=== PATIENT | male | born 1945 | race Caucasian/White ===

== ENCOUNTER 2016-10-05 13:52 | Outpatient (CLI) | payer MEDICARE ==
[2016-10-05 18:41] LABS: CHOL/HDL RATIO 4.4 (<5.0); CHOLESTEROL 204 mg/dL; HDL CHOLESTEROL 46 mg/dL; LDL/HDL RATIO 3.1 (<3.6); TRIGLYCERIDES 82 mg/dL; VLDL CHOLESTEROL 16 mg/dL
== END 2016-10-05 13:53 | disposition home or self-care (01) ==
LOC: LAB.F 13:52
PROVIDERS: ATTEND Internal Medicine
DX: E78.2 Mixed hyperlipidemia (principal)
CPT/HCPCS: 36415; 80061

== ENCOUNTER 2017-10-15 10:21 | Outpatient (CLI) | payer MEDICARE ==
[2017-10-15 19:20] LABS: CHOL/HDL RATIO 5.8 (<5.0); CHOLESTEROL 237 mg/dL; HDL CHOLESTEROL 41 mg/dL; LDL CHOLESTEROL,CALCULATED 171 mg/dL; LDL/HDL RATIO 4.2 (<3.6); VLDL CHOLESTEROL 25 mg/dL
[2017-10-16 13:01] LABS: HEPATITIS C ANTIBODY NON-REACTIVE (NON-REACTIVE)
== END 2017-10-15 10:22 | disposition home or self-care (01) ==
LOC: LAB.F 10:21
PROVIDERS: ATTEND Internal Medicine
DX: Z00.00 Encounter for general adult medical examination without abnormal findings (principal); I48.91 Unspecified atrial fibrillation; C44.91 Basal cell carcinoma of skin, unspecified; L03.90 Cellulitis, unspecified; K21.9 Gastro-esophageal reflux disease without esophagitis; K40.90 Unilateral inguinal hernia, without obstruction or gangrene, not specified as recurrent; E78.2 Mixed hyperlipidemia; Z12.11 Encounter for screening for malignant neoplasm of colon
CPT/HCPCS: 36415; 80061; 83721; 86803

== ENCOUNTER 2018-02-24 09:24 | Outpatient (CLI) | payer MEDICARE ==
[2018-02-24 19:07] LABS: CHOL/HDL RATIO 3.3 (<5.0); CHOLESTEROL 143 mg/dL; HDL CHOLESTEROL 43 mg/dL; LDL CHOLESTEROL,CALCULATED 80 mg/dL; LDL/HDL RATIO 1.9 (<3.6); VLDL CHOLESTEROL 20 mg/dL
== END 2018-02-24 09:25 | disposition home or self-care (01) ==
LOC: LAB.F 09:24
PROVIDERS: ATTEND Internal Medicine
DX: I48.91 Unspecified atrial fibrillation (principal); C44.91 Basal cell carcinoma of skin, unspecified; K21.9 Gastro-esophageal reflux disease without esophagitis; E78.2 Mixed hyperlipidemia
CPT/HCPCS: 36415; 80061; 83721

== ENCOUNTER 2018-11-17 10:39 | Outpatient (CLI) | payer MEDICARE ==
[2018-11-17 17:25] LABS: BASOPHILS % (AUTO) 0.6 %; EOSINOPHILS # (AUTO) 0.2 10^3/uL (0.0-0.7); EOSINOPHILS % (AUTO) 3.9 %; HGB - HEMOGLOBIN 14.9 g/dL (14.0-18.0); LYMPHOCYTES # (AUTO) 2.3 10^3/uL (1.5-3.5); LYMPHOCYTES % (AUTO) 36.2 %; MEAN CORPUSCULAR HGB CONC 32.5 g/dL (32.0-36.0); MEAN CORPUSCULAR VOLUME 95.4 fL (80.0-94.0); MEAN PLATELET VOLUME 10.6 fL (7.4-11.4); MONOCYTES # (AUTO) 0.5 10^3/uL (0.0-1.0); MONOCYTES % (AUTO) 8.7 %; NEUTROPHILS # (AUTO) 3.1 10^3/uL (1.5-6.6); NEUTROPHILS % (AUTO) 50.4 %; PLT - PLATELET COUNT 239 10^3/uL (130-450); RED BLOOD COUNT 4.81 10^6/uL (4.70-6.10); RED CELL DISTRIBUTION WIDTH 13.1 % (12.0-15.0); WHITE BLOOD COUNT 6.2 x10^3/uL (4.8-10.8)
[2018-11-17 17:48] LABS: CHOL/HDL RATIO 3.2 (<5.0); CHOLESTEROL 145 mg/dL; HDL CHOLESTEROL 45 mg/dL; LDL CHOLESTEROL,CALCULATED 80 mg/dL; LDL/HDL RATIO 1.8 (<3.6); VLDL CHOLESTEROL 20 mg/dL
== END 2018-11-17 10:40 | disposition home or self-care (01) ==
LOC: LAB.S 10:39
PROVIDERS: ATTEND Internal Medicine
DX: I48.91 Unspecified atrial fibrillation (principal); C44.91 Basal cell carcinoma of skin, unspecified; K21.9 Gastro-esophageal reflux disease without esophagitis; N52.9 Male erectile dysfunction, unspecified; E78.2 Mixed hyperlipidemia
CPT/HCPCS: 36415; 80061; 83721; 85025

== ENCOUNTER 2019-01-21 09:02 | Outpatient (CLI) | payer MEDICARE ==
--- NOTE | 2019-01-22 14:19 | MRI Report ---
Reason: PAIN RADIATING TO LT SHOULDER Procedure Date: 01/21/2019 Accession Number: [id number] / [id number] Procedure: MRI - Shoulder LT W/O CPT Code: Final Report FULL RESULT: EXAM: LEFT SHOULDER MRI WITHOUT CONTRAST EXAM DATE: 01/21/2019 09:52 AM. CLINICAL HISTORY: PAIN RADIATING TO LT SHOULDER. COMPARISON: SHOULDER 3 VIEW LT 03/24/2014 10:14 PM. TECHNIQUE: Multiplanar, multisequence T1-weighted and fluid-sensitive sequences of the shoulder without contrast. Other: None. FINDINGS: Acromioclavicular Region: The acromion is type II. There is mild cortical hypertrophy and cortical flattening of the undersurface of the acromion consistent with degenerative sequela of chronic subacromial impingement. Mild acromioclavicular osteoarthritis is present. Small osteophytes projecting inferiorly from the distal clavicle slightly indent the bursal surface of the supraspinatus muscle belly. The coracoacromial and coracoclavicular ligaments are intact. Moderate subacromial/subdeltoid bursal fluid with hypertrophy of the bursa membranes consistent with bursitis. Glenohumeral Region: No subluxation. No effusion or loose bodies. The articular cartilage is unremarkable. The glenohumeral ligaments and joint capsule are unremarkable. Bone Marrow: No fracture, marrow edema or bone lesions. Labrum: The labrum is unremarkable on this nonarthrographic study. Musculature/Rotator Cuff: There is focal increased T2 signal in the substance of the distal and anterior supraspinatus at the greater tuberosity insertion involving the anterior approximately 50% of the tendon consistent with a tear, most likely a partial thickness tear with extension to the bursal surface. The tear extends very nearly but probably not completely through the full thickness of the tendon. More posteriorly, there is increased signal in the mid to distal tendon consistent with superimposed tendinosis. No complete retracted tear is present. Mild tendinosis of the mid to distal and anterior infraspinatus with slightly more focal increased signal along the articular surface fibers of the central portion of the tendon at the greater tuberosity insertion consistent with a low-grade partial thickness articular surface tear. No high-grade infraspinatus tear. The teres minor is normal. The subscapularis is normal. No rotator cuff muscle belly atrophy or edema. Biceps Tendon: Mild tendinosis of the intra-articular portion of the long head biceps tendon. No long head biceps tendon tear. Other: The subcutaneous tissues are unremarkable. IMPRESSION: 1. High-grade though likely partial-thickness bursal surface tear at the insertion of the anterior fibers of the supraspinatus on the greater tuberosity. Mild tendinosis in the mid to distal supraspinatus further posteriorly. 2. Mild tendinosis of the mid to distal and anterior infraspinatus with a small superimposed low-grade partial thickness tear along the articular surface of the central portion of the tendon at the greater tuberosity insertion. 3. Mild tendinosis of the intra-articular portion of the long head biceps tendon without tear. 4. Cortical hypertrophic changes and contour flattening along the undersurface of the acromion suggestive of degenerative sequela of chronic subacromial impingement. Moderate subacromial/subdeltoid bursitis may be secondary to this. 5. Mild acromioclavicular osteoarthritis. Small osteophytes projecting inferiorly from the distal clavicle slightly indent the bursal surface of the supraspinatus muscle belly. RADIA
== END 2019-01-21 09:03 | disposition home or self-care (01) ==
LOC: DI 09:02
PROVIDERS: ATTEND Internal Medicine
DX: M75.102 Unspecified rotator cuff tear or rupture of left shoulder, not specified as traumatic (principal); M67.922 Unspecified disorder of synovium and tendon, left upper arm; M75.52 Bursitis of left shoulder; M19.012 Primary osteoarthritis, left shoulder; M89.312 Hypertrophy of bone, left shoulder

== ENCOUNTER 2019-12-14 09:09 | Outpatient (CLI) | payer MEDICARE ==
--- NOTE | 2019-12-14 11:19 | MRI Report ---
PROCEDURE: Shoulder LT W/O INDICATIONS: LT SHOULDER PAIN TECHNIQUE: Noncontrast oblique coronal T2 fast spin echo with fat saturation, oblique sagittal T1 spin echo and T2 fast spin echo with fat saturation, axial T1 spin echo and T2 fast spin echo with fat saturation t hrough the shoulder. COMPARISON: None. FINDINGS: Image quality: Excellent. Rotator cuff: Tendinosis and low-grade articular bursal surface partial-thickness tear involving dist al supraspinatus at its insertion on humeral head extending to the musculotendinous junction is seen. Distal infraspinatus and subscapularis tendinosis is also seen. No full-thickness rotator cuff tendo n rupture.. No significant rotator cuff muscle atrophy on sagittal images. Bones and bursae: No bone marrow contusions or fractures. Moderate acromioclavicular joint osteoarth ritis is seen with downward osteophyte formation depressing the musculotendinous junction of supraspi natus. Mild to moderate glenohumeral joint osteoarthritis is also noted. Small amount of joint fluid and subacromial subdeltoid bursal fluid is seen. Capsule and soft tissues: In the absence of intra-articular contrast, there is suggestion of focal s uperior anterior labral tear at 12 to 1:00 position. There is also suggestion of anterior inferior la bral tear at 5 to 6:00 position. Glenohumeral ligaments appear intact. The long head of the biceps t endinosis is seen. The rotator interval appears normal, without fibrosis. The coracohumeral ligamen t is normal in thickness. IMPRESSION: 1. Tendinosis and low-grade articular and bursal surface partial thickness tear involving distal supr aspinatus extending to musculotendinous junction. Distal infraspinatus and subscapularis tendinosis. 2. Moderate acromioclavicular joint osteoarthritis and glenohumeral joint osteoarthritis. 3. Suggestion of superior anterior labral tear at 12 to 1:00 position an anterior inferior labral tea r at 5 to 6:00 position. 4. Proximal intra-articular portion of long head of biceps tendinosis. Reviewed by: Devendra Abreu MD on 12/14/2019 11:17 AM PDT Approved by: Devendra Abreu MD on 12/14/2019 11:17 AM PDT Station ID: [id number]
== END 2019-12-14 09:10 | disposition home or self-care (01) ==
LOC: DI 09:09
PROVIDERS: ATTEND Orthopaedic Surgery
DX: S46.022A Laceration of muscle(s) and tendon(s) of the rotator cuff of left shoulder, initial encounter (principal); M19.012 Primary osteoarthritis, left shoulder; M75.92 Shoulder lesion, unspecified, left shoulder

== ENCOUNTER 2020-01-18 11:41 | Outpatient (CLI) | payer MEDICARE ==
[2020-01-18 16:58] LABS: BASOPHILS # (AUTO) 0.1 10^3/uL (0.0-0.1); EOSINOPHILS # (AUTO) 0.1 10^3/uL (0.0-0.7); EOSINOPHILS % (AUTO) 2.1 %; HGB - HEMOGLOBIN 14.6 g/dL (14.0-18.0); LYMPHOCYTES # (AUTO) 1.5 10^3/uL (1.5-3.5); LYMPHOCYTES % (AUTO) 24.8 %; MEAN CORPUSCULAR HEMOGLOBIN 31.6 pg (27.0-31.0); MEAN CORPUSCULAR HGB CONC 32.4 g/dL (32.0-36.0); MEAN CORPUSCULAR VOLUME 97.4 fL (80.0-94.0); MEAN PLATELET VOLUME 10.8 fL (7.4-11.4); MONOCYTES # (AUTO) 0.5 10^3/uL (0.0-1.0); MONOCYTES % (AUTO) 8.1 %; NEUTROPHILS # (AUTO) 3.9 10^3/uL (1.5-6.6); NEUTROPHILS % (AUTO) 63.5 %; PLT - PLATELET COUNT 260 10^3/uL (130-450); RED BLOOD COUNT 4.62 10^6/uL (4.70-6.10); RED CELL DISTRIBUTION WIDTH 13.2 % (12.0-15.0); WHITE BLOOD COUNT 6.2 x10^3/uL (4.8-10.8)
[2020-01-18 16:59] LABS: CHOL/HDL RATIO 3.3 (<5.0); CHOLESTEROL 144 mg/dL; HDL CHOLESTEROL 43 mg/dL; LDL CHOLESTEROL,CALCULATED 83 mg/dL; LDL/HDL RATIO 1.9 (<3.6); VLDL CHOLESTEROL 18 mg/dL
[2020-01-18 17:20] LABS: INR 3.7 (0.8-1.2); PT - PROTHROMBIN TIME 37.7 secs (9.9-12.6)
[2020-01-18 17:27] LABS: PARTIAL THROMBOPLASTIN TIME 41.4 secs (24.9-33.3)
[2020-01-19 12:25] LABS: HEPATITIS C ANTIBODY NON-REACTIVE (NON-REACTIVE)
== END 2020-01-18 11:42 | disposition home or self-care (01) ==
LOC: LAB.S 11:41
PROVIDERS: ATTEND Internal Medicine
DX: E78.2 Mixed hyperlipidemia (principal); I48.91 Unspecified atrial fibrillation; K21.9 Gastro-esophageal reflux disease without esophagitis; Z11.59 Encounter for screening for other viral diseases
CPT/HCPCS: 36415; 80061; 83721; 85025; 85610; 85730; 86803

== ENCOUNTER 2020-01-21 08:55 | Outpatient (CLI) | payer MEDICARE | END 2020-01-21 08:56 | disposition home or self-care (01) | LOC: LAB.S 08:55 | PROVIDERS: ATTEND Internal Medicine | DX: I48.91 Unspecified atrial fibrillation (principal) | CPT/HCPCS: 85610 ==

== ENCOUNTER 2020-01-25 10:44 | Outpatient (CLI) | payer MEDICARE | END 2020-01-25 10:45 | disposition home or self-care (01) | LOC: LAB.S 10:44 | PROVIDERS: ATTEND Internal Medicine | DX: I48.91 Unspecified atrial fibrillation (principal) | CPT/HCPCS: 85610 ==

== ENCOUNTER 2020-02-01 09:01 | Outpatient (CLI) | payer MEDICARE | END 2020-02-01 09:02 | disposition home or self-care (01) | LOC: LAB.S 09:01 | PROVIDERS: ATTEND Internal Medicine | DX: I48.91 Unspecified atrial fibrillation (principal) | CPT/HCPCS: 85610 ==

== ENCOUNTER 2020-02-23 21:15 | Outpatient (CLI) | payer MEDICARE ==
--- OUTSIDE RECORDS SUMMARY | 2020-03-02 00:29 | EXTERNAL MEDICAL SUMMARY RPT | Continuity of Care Document ---
:1945 Demographics Phone Unavailable Preferred Language Scottish Marital Status Unknown Scientologist Affiliation Unknown Race Unknown Ethnic Group Unknown Author Organization [place] Address [address] [phone] Phone Care Team Providers Name Role Phone Kalyani Unavailable Unavailable Problems date description facility 2016-10-05 13:52 MIXED HYPERLIPIDEMIA [facility] 2017-10-15 10:21 BASAL CELL CARCINOMA OF SKIN, [facility] UNSPECIFIED 2017-10-15 10:21 MIXED HYPERLIPIDEMIA [facility] 2017-10-15 10:21 UNSPECIFIED ATRIAL FIBRILLATION [facility] 2017-10-15 10:21 GASTRO-ESOPHAGEAL REFLUX DISEASE [facility] WITHOUT ESOPHAGITIS 2017-10-15 10:21 UNIL INGUINAL HERNIA, W/O OBST OR [facility] GANGR, NOT SPCF RECUR 2017-10-15 10:21 CELLULITIS, UNSPECIFIED [facility] 2017-10-15 10:21 ENCNTR FOR GENERAL ADULT MEDICAL [facility] EXAM W/O ABNORMAL FINDINGS 2017-10-15 10:21 ENCOUNTER FOR SCREENING FOR [facility] MALIGNANT NEOPLASM OF COLON 2018-02-24 09:24 BASAL CELL CARCINOMA OF SKIN, [facility] UNSPECIFIED 2018-02-24 09:24 MIXED HYPERLIPIDEMIA [facility] 2018-02-24 09:24 UNSPECIFIED ATRIAL FIBRILLATION [facility] 2018-02-24 09:24 GASTRO-ESOPHAGEAL REFLUX DISEASE [facility] WITHOUT ESOPHAGITIS 2018-11-17 10:39 BASAL CELL CARCINOMA OF SKIN, [facility] UNSPECIFIED 2018-11-17 10:39 MIXED HYPERLIPIDEMIA [facility] 2018-11-17 10:39 UNSPECIFIED ATRIAL FIBRILLATION [facility] 2018-11-17 10:39 GASTRO-ESOPHAGEAL REFLUX DISEASE [facility] WITHOUT ESOPHAGITIS 2018-11-17 10:39 MALE ERECTILE DYSFUNCTION, [facility] UNSPECIFIED 2019-01-21 09:02 PRIMARY OSTEOARTHRITIS, LEFT [facility] SHOULDER 2019-01-21 09:02 UNSPECIFIED DISORDER OF SYNOVIUM [facility] AND TENDON, LEFT UPPER ARM 2019-01-21 09:02 UNSP ROTATR-CUFF TEAR/RUPTR OF [facility] LEFT SHOULDER, NOT TRAUMA 2019-01-21 09:02 BURSITIS OF LEFT SHOULDER [facility] 2019-01-21 09:02 HYPERTROPHY OF BONE, LEFT SHOULDER [facility] 2019-12-14 09:09 PRIMARY OSTEOARTHRITIS, LEFT [facility] SHOULDER 2019-12-14 09:09 SHOULDER LESION, UNSPECIFIED, LEFT [facility] SHOULDER 2019-12-14 09:09 LACERAT MUSC/TEND THE ROTATOR CUFF [facility] OF LEFT SHOULDER, INIT 2020-01-18 11:41 MIXED HYPERLIPIDEMIA [facility] ical [facility] 2020-01-18 11:41 UNSPECIFIED ATRIAL FIBRILLATION [facility] 2020-01-18 11:41 GASTRO-ESOPHAGEAL REFLUX DISEASE [facility] WITHOUT ESOPHAGITIS 2020-01-18 11:41 ENCOUNTER FOR SCREENING FOR OTHER [facility] VIRAL DISEASES 2020-01-21 08:55 UNSPECIFIED ATRIAL FIBRILLATION [facility] 2020-01-25 10:44 UNSPECIFIED ATRIAL FIBRILLATION [facility] 2020-02-01 09:01 UNSPECIFIED ATRIAL FIBRILLATION [facility] 2020-02-23 21:15 CONTACT WITH AND (SUSPECTED) [facility] EXPOSURE TO COVID-19 2020-02-25 09:25 UNSPECIFIED ATRIAL FIBRILLATION [facility] Allergies date description facility [facility]ES[facility] CODEINE [facility] G[facility]ENTIN [facility]ENE [facility] FLUTICASONE-SALMETEROL [facility] IAM INHIBITORS [facility] AMANTADINES [facility] [place] MORPHINE AND RELATED [facility] NIACIN AND RELATED [facility] NO KNOWN ENVIRONMENTAL ALLERGIES [facility] PENICILLINS [facility] SULFA (SULFONAMIDE ANTIBIOTICS) [facility] NO KNOWN ALLERGIES [facility] MORPHINE [facility] CAT DANDER [facility] MOLD [facility] VANCOMYCIN [facility] PHENYLTOIN SODIUM [facility] ADHESIVE TAPE-SILICONES [facility] No Known Drug Allergies [facility] Results Social History date description facility [id number]
== END 2020-02-23 21:16 | disposition home or self-care (01) ==
LOC: COV 21:15
PROVIDERS: ATTEND Family Medicine
DX: Z20.822 Contact with and (suspected) exposure to COVID-19 (principal)

== ENCOUNTER 2020-02-25 09:25 | Outpatient (CLI) | payer MEDICARE | END 2020-02-25 09:26 | disposition home or self-care (01) | LOC: LAB.S 09:25 | PROVIDERS: ATTEND Internal Medicine | DX: I48.91 Unspecified atrial fibrillation (principal) | CPT/HCPCS: 85610 ==

== ENCOUNTER 2020-03-08 12:47 | Outpatient (CLI) | payer MEDICARE | END 2020-03-08 12:48 | disposition home or self-care (01) | LOC: LAB.S 12:47 | PROVIDERS: ATTEND Internal Medicine | DX: I48.91 Unspecified atrial fibrillation (principal) | CPT/HCPCS: 85610 ==

== ENCOUNTER 2020-03-21 08:58 | Outpatient (CLI) | payer MEDICARE | END 2020-03-21 08:59 | disposition home or self-care (01) | LOC: LAB.S 08:58 | PROVIDERS: ATTEND Internal Medicine | DX: I48.91 Unspecified atrial fibrillation (principal) | CPT/HCPCS: 85610 ==

== ENCOUNTER 2020-03-29 15:22 | Outpatient (CLI) | payer MEDICARE | END 2020-03-29 15:23 | disposition home or self-care (01) | LOC: LAB.S 15:22 | PROVIDERS: ATTEND Internal Medicine | DX: I48.91 Unspecified atrial fibrillation (principal) | CPT/HCPCS: 85610 ==

== ENCOUNTER 2020-04-27 11:37 | Outpatient (CLI) | payer MEDICARE | END 2020-04-27 11:38 | disposition home or self-care (01) | LOC: LAB.S 11:37 | PROVIDERS: ATTEND Internal Medicine | DX: I48.91 Unspecified atrial fibrillation (principal) | CPT/HCPCS: 85610 ==

== ENCOUNTER 2020-05-09 09:08 | Outpatient (CLI) | payer MEDICARE | END 2020-05-09 09:09 | disposition home or self-care (01) | LOC: LAB.S 09:08 | PROVIDERS: ATTEND Internal Medicine | DX: I48.91 Unspecified atrial fibrillation (principal) | CPT/HCPCS: 85610 ==

== ENCOUNTER 2020-05-28 09:16 | Outpatient (CLI) | payer MEDICARE | END 2020-05-28 09:17 | disposition home or self-care (01) | LOC: LAB.S 09:16 | PROVIDERS: ATTEND Internal Medicine | DX: I48.91 Unspecified atrial fibrillation (principal) | CPT/HCPCS: 85610 ==

== ENCOUNTER 2020-06-13 09:10 | Outpatient (CLI) | payer MEDICARE | END 2020-06-13 09:11 | disposition home or self-care (01) | LOC: LAB.S 09:10 | PROVIDERS: ATTEND Internal Medicine | DX: I48.91 Unspecified atrial fibrillation (principal) | CPT/HCPCS: 85610 ==

== ENCOUNTER 2020-07-04 09:09 | Outpatient (CLI) | payer MEDICARE | END 2020-07-04 09:10 | disposition home or self-care (01) | LOC: LAB.S 09:09 | PROVIDERS: ATTEND Internal Medicine | DX: I48.91 Unspecified atrial fibrillation (principal) | CPT/HCPCS: 36416; 85610 ==

== ENCOUNTER 2020-07-14 14:44 | Outpatient (CLI) | payer MEDICARE | END 2020-07-14 14:45 | disposition home or self-care (01) | LOC: LAB.S 14:44 | PROVIDERS: ATTEND Internal Medicine | DX: I48.91 Unspecified atrial fibrillation (principal) | CPT/HCPCS: 36416; 85610 ==

== ENCOUNTER 2020-07-23 09:28 | Outpatient (CLI) | payer MEDICARE | END 2020-07-23 09:29 | disposition home or self-care (01) | LOC: LAB.S 09:28 | PROVIDERS: ATTEND Internal Medicine | DX: I48.91 Unspecified atrial fibrillation (principal) | CPT/HCPCS: 36416; 85610 ==

== ENCOUNTER 2020-08-15 07:41 | Outpatient (CLI) | payer MEDICARE | END 2020-08-15 07:42 | disposition home or self-care (01) | LOC: LAB.S 07:41 | PROVIDERS: ATTEND Internal Medicine | DX: I48.91 Unspecified atrial fibrillation (principal) | CPT/HCPCS: 36416; 85610 ==

== ENCOUNTER 2020-08-25 08:04 | Outpatient (CLI) | payer MEDICARE | END 2020-08-25 08:05 | disposition home or self-care (01) | LOC: LAB.S 08:04 | PROVIDERS: ATTEND Internal Medicine | DX: I48.91 Unspecified atrial fibrillation (principal) | CPT/HCPCS: 36416; 85610 ==

== ENCOUNTER 2020-08-29 13:19 | Outpatient (CLI) | payer MEDICARE | END 2020-08-29 13:20 | disposition home or self-care (01) | LOC: LAB.S 13:19 | PROVIDERS: ATTEND Internal Medicine | DX: I48.91 Unspecified atrial fibrillation (principal) | CPT/HCPCS: 36416; 85610 ==

== ENCOUNTER 2020-09-05 09:31 | Outpatient (CLI) | payer MEDICARE | END 2020-09-05 09:32 | disposition home or self-care (01) | LOC: LAB.S 09:31 | PROVIDERS: ATTEND Internal Medicine | DX: I48.91 Unspecified atrial fibrillation (principal) | CPT/HCPCS: 36416; 85610 ==

== ENCOUNTER 2020-09-12 10:48 | Outpatient (CLI) | payer MEDICARE | END 2020-09-12 10:49 | disposition home or self-care (01) | LOC: LAB.S 10:48 | PROVIDERS: ATTEND Internal Medicine | DX: I48.91 Unspecified atrial fibrillation (principal) | CPT/HCPCS: 36416; 85610 ==

== ENCOUNTER 2020-09-15 07:55 | Outpatient (CLI) | payer MEDICARE | END 2020-09-15 07:56 | disposition home or self-care (01) | LOC: LAB.S 07:55 | PROVIDERS: ATTEND Internal Medicine | DX: I48.91 Unspecified atrial fibrillation (principal) | CPT/HCPCS: 36416; 85610 ==

== ENCOUNTER 2020-09-29 07:54 | Outpatient (CLI) | payer MEDICARE | END 2020-09-29 07:55 | disposition home or self-care (01) | LOC: LAB.S 07:54 | PROVIDERS: ATTEND Internal Medicine | DX: I48.91 Unspecified atrial fibrillation (principal) | CPT/HCPCS: 36416; 85610 ==

== ENCOUNTER 2020-11-07 08:13 | Outpatient (CLI) | payer MEDICARE | END 2020-11-07 08:14 | disposition home or self-care (01) | LOC: LAB.S 08:13 | PROVIDERS: ATTEND Internal Medicine | DX: I48.91 Unspecified atrial fibrillation (principal) | CPT/HCPCS: 36416; 85610 ==

== ENCOUNTER 2020-12-29 08:51 | Outpatient (CLI) | payer MEDICARE | END 2020-12-29 08:52 | disposition home or self-care (01) | LOC: LAB.S 08:51 | PROVIDERS: ATTEND Internal Medicine | DX: I48.91 Unspecified atrial fibrillation (principal) | CPT/HCPCS: 36416; 85610 ==

== ENCOUNTER 2021-01-02 16:33 | Emergency (ER) | payer MEDICARE ==
[2021-01-02 16:55] VITALS: BP 133/82
[2021-01-02 17:07] LABS: BASOPHILS # (AUTO) 0.1 10^3/uL (0.0-0.1); BASOPHILS % (AUTO) 0.5 %; EOSINOPHILS % (AUTO) 0.2 %; HGB - HEMOGLOBIN 16.5 g/dL (14.0-18.0); LYMPHOCYTES # (AUTO) 0.9 10^3/uL (1.5-3.5); LYMPHOCYTES % (AUTO) 8.9 %; MEAN CORPUSCULAR HEMOGLOBIN 32.6 pg (27.0-31.0); MEAN CORPUSCULAR HGB CONC 33.7 g/dL (32.0-36.0); MEAN CORPUSCULAR VOLUME 96.8 fL (80.0-94.0); MEAN PLATELET VOLUME 9.7 fL (7.4-11.4); MONOCYTES # (AUTO) 0.5 10^3/uL (0.0-1.0); MONOCYTES % (AUTO) 4.9 %; NEUTROPHILS # (AUTO) 8.6 10^3/uL (1.5-6.6); PLT - PLATELET COUNT 264 10^3/uL (130-450); RED BLOOD COUNT 5.06 10^6/uL (4.70-6.10); RED CELL DISTRIBUTION WIDTH 12.9 % (12.0-15.0); WHITE BLOOD COUNT 10.1 x10^3/uL (4.8-10.8)
[2021-01-02 17:20] LABS: ALBUMIN 4.6 g/dL (3.2-5.5); ALBUMIN/GLOBULIN RATIO 1.4 (1.0-2.2); BILIRUBIN,TOTAL 1.1 mg/dL (0.2-1.0); CALCIUM 9.5 mg/dL (8.5-10.3); CREATININE 0.9 mg/dL (0.6-1.2); POTASSIUM 3.9 mmol/L (3.5-5.0); TOTAL PROTEIN 7.9 g/dL (6.7-8.2)
== END 2021-01-02 18:53 | disposition left against medical advice (07) ==
LOC: ED 16:33
DX: Z53.21 Procedure and treatment not carried out due to patient leaving prior to being seen by health care provider (principal)
CPT/HCPCS: 36415; 80053; 83690; 85025

== ENCOUNTER 2021-01-07 11:19 | Outpatient (CLI) | payer MEDICARE ==
[2021-01-07 15:31] LABS: CHOL/HDL RATIO 2.7 (<5.0); CHOLESTEROL 121 mg/dL; HDL CHOLESTEROL 45 mg/dL; LDL CHOLESTEROL,CALCULATED 63 mg/dL; LDL/HDL RATIO 1.4 (<3.6); TRIGLYCERIDES 65 mg/dL; VLDL CHOLESTEROL 13 mg/dL
== END 2021-01-07 11:20 | disposition home or self-care (01) ==
LOC: LAB.S 11:19
PROVIDERS: ATTEND Internal Medicine
DX: I48.91 Unspecified atrial fibrillation (principal); E78.5 Hyperlipidemia, unspecified
CPT/HCPCS: 36415; 80061; 83721

== ENCOUNTER 2021-02-24 10:00 | Outpatient (CLI) | payer MEDICARE | END 2021-02-24 10:01 | disposition home or self-care (01) | LOC: LAB.S 10:00 | PROVIDERS: ATTEND Internal Medicine | DX: I48.91 Unspecified atrial fibrillation (principal) | CPT/HCPCS: 36416; 85610 ==

== ENCOUNTER 2021-04-24 07:58 | Outpatient (CLI) | payer MEDICARE | END 2021-04-24 07:59 | disposition home or self-care (01) | LOC: LAB.S 07:58 | PROVIDERS: ATTEND Internal Medicine | DX: I48.91 Unspecified atrial fibrillation (principal) | CPT/HCPCS: 36416; 85610 ==

== ENCOUNTER 2021-05-17 15:20 | Outpatient (CLI) | payer MEDICARE ==
[2021-05-17 20:14] LABS: BILIRUBIN,URINE NEGATIVE (NEGATIVE); GLUCOSE, URINE (UA) NEGATIVE (NEGATIVE); KETONES,URINE (UA) NEGATIVE (NEGATIVE); LEUKOCYTE ESTERASE, URINE NEGATIVE (NEGATIVE); NITRITE,URINE NEGATIVE (NEGATIVE); OCCULT BLOOD,URINE NEGATIVE (NEGATIVE); PROTEIN,URINE NEGATIVE (NEGATIVE); UROBILINOGEN,URINE 0.2 (NORMAL) E.U./dL (NORMAL)
[2021-05-17 20:17] LABS: CLARITY,URINE CLEAR (CLEAR)
[2021-05-17 20:37] LABS: BACTERIA,URINE None Seen /HPF (None Seen); RBC,URINE None Seen /HPF (0-5); SQUAMOUS EPITHELIAL CELL,UR NONE SEEN (<= Few); WBC,URINE 0-3 /HPF (0-3)
== END 2021-05-17 15:21 | disposition home or self-care (01) ==
LOC: LAB.S 15:20
PROVIDERS: ATTEND Internal Medicine
DX: N40.0 Benign prostatic hyperplasia without lower urinary tract symptoms (principal); R39.11 Hesitancy of micturition
CPT/HCPCS: 81001; 87086

== ENCOUNTER 2021-07-03 08:36 | Outpatient (CLI) | payer MEDICARE | END 2021-07-03 08:37 | disposition home or self-care (01) | LOC: LAB.S 08:36 | PROVIDERS: ATTEND Internal Medicine | DX: I48.91 Unspecified atrial fibrillation (principal) | CPT/HCPCS: 36416; 85610 ==

== ENCOUNTER 2021-08-04 08:52 | Outpatient (CLI) | payer MEDICARE | END 2021-08-04 08:53 | disposition home or self-care (01) | LOC: LAB.S 08:52 | PROVIDERS: ATTEND Internal Medicine | DX: I48.91 Unspecified atrial fibrillation (principal) | CPT/HCPCS: 36416; 85610 ==

== ENCOUNTER 2021-09-11 07:23 | Outpatient (CLI) | payer MEDICARE | END 2021-09-11 07:24 | disposition home or self-care (01) | LOC: LAB.S 07:23 | PROVIDERS: ATTEND Internal Medicine | DX: I48.91 Unspecified atrial fibrillation (principal) | CPT/HCPCS: 36416; 85610 ==

== ENCOUNTER 2022-01-08 08:17 | Outpatient (CLI) | payer MEDICARE | END 2022-01-08 08:18 | disposition home or self-care (01) | LOC: LAB.S 08:17 | PROVIDERS: ATTEND Internal Medicine | DX: I48.91 Unspecified atrial fibrillation (principal) | CPT/HCPCS: 36416; 85610 ==

== ENCOUNTER 2022-01-09 10:27 | Outpatient (CLI) | payer MEDICARE ==
[2022-01-09 14:45] LABS: BASOPHILS # (AUTO) 0.1 10^3/uL (0.0-0.1); BASOPHILS % (AUTO) 1.1 %; EOSINOPHILS # (AUTO) 0.2 10^3/uL (0.0-0.7); EOSINOPHILS % (AUTO) 3.3 %; HCT - HEMATOCRIT 46.5 % (42.0-52.0); HGB - HEMOGLOBIN 14.6 g/dL (14.0-18.0); LYMPHOCYTES # (AUTO) 1.5 10^3/uL (1.5-3.5); LYMPHOCYTES % (AUTO) 26.9 %; MEAN CORPUSCULAR HEMOGLOBIN 30.6 pg (27.0-31.0); MEAN CORPUSCULAR HGB CONC 31.4 g/dL (32.0-36.0); MEAN CORPUSCULAR VOLUME 97.5 fL (80.0-94.0); MEAN PLATELET VOLUME 10.3 fL (7.4-11.4); MONOCYTES # (AUTO) 0.5 10^3/uL (0.0-1.0); MONOCYTES % (AUTO) 9.6 %; NEUTROPHILS # (AUTO) 3.2 10^3/uL (1.5-6.6); NEUTROPHILS % (AUTO) 58.9 %; PLT - PLATELET COUNT 262 10^3/uL (130-450); RED BLOOD COUNT 4.77 10^6/uL (4.70-6.10); RED CELL DISTRIBUTION WIDTH 13.5 % (12.0-15.0); WHITE BLOOD COUNT 5.4 x10^3/uL (4.8-10.8)
[2022-01-09 15:11] LABS: CHOL/HDL RATIO 3.2 (<5.0); CHOLESTEROL 139 mg/dL; HDL CHOLESTEROL 44 mg/dL; LDL CHOLESTEROL,CALCULATED 84 mg/dL; LDL/HDL RATIO 1.9 (<3.6); TRIGLYCERIDES 56 mg/dL; VLDL CHOLESTEROL 11 mg/dL
== END 2022-01-09 10:28 | disposition home or self-care (01) ==
LOC: LAB.S 10:27
PROVIDERS: ATTEND Internal Medicine
DX: I48.91 Unspecified atrial fibrillation (principal); E78.5 Hyperlipidemia, unspecified
CPT/HCPCS: 36415; 80061; 83721; 85025

== ENCOUNTER 2022-03-09 08:36 | Outpatient (CLI) | payer MEDICARE | END 2022-03-09 08:37 | disposition home or self-care (01) | LOC: LAB.S 08:36 | PROVIDERS: ATTEND Internal Medicine | DX: I48.91 Unspecified atrial fibrillation (principal) | CPT/HCPCS: 36416; 85610 ==

== ENCOUNTER 2022-03-30 07:44 | Outpatient (CLI) | payer MEDICARE | END 2022-03-30 07:45 | disposition home or self-care (01) | LOC: LAB.S 07:44 | PROVIDERS: ATTEND Internal Medicine | DX: I48.91 Unspecified atrial fibrillation (principal) | CPT/HCPCS: 36416; 85610 ==

== ENCOUNTER 2022-11-20 08:20 | Outpatient (CLI) | payer MEDICARE | END 2022-11-20 08:21 | disposition home or self-care (01) | LOC: LAB.S 08:20 | PROVIDERS: ATTEND Internal Medicine | DX: I48.91 Unspecified atrial fibrillation (principal) | CPT/HCPCS: 36416; 85610 ==

== ENCOUNTER 2023-01-28 08:36 | Outpatient (CLI) | payer MEDICARE ==
[2023-01-28 15:26] LABS: BASOPHILS # (AUTO) 0.1 10^3/uL (0.0-0.1); BASOPHILS % (AUTO) 1.1 %; EOSINOPHILS # (AUTO) 0.3 10^3/uL (0.0-0.7); EOSINOPHILS % (AUTO) 3.8 %; HCT - HEMATOCRIT 45.5 % (42.0-52.0); HGB - HEMOGLOBIN 14.9 g/dL (14.0-18.0); LYMPHOCYTES # (AUTO) 1.9 10^3/uL (1.5-3.5); LYMPHOCYTES % (AUTO) 28.9 %; MEAN CORPUSCULAR HEMOGLOBIN 32.2 pg (27.0-31.0); MEAN CORPUSCULAR HGB CONC 32.7 g/dL (32.0-36.0); MEAN CORPUSCULAR VOLUME 98.3 fL (80.0-94.0); MEAN PLATELET VOLUME 10.1 fL (7.4-11.4); MONOCYTES # (AUTO) 0.7 10^3/uL (0.0-1.0); MONOCYTES % (AUTO) 10.1 %; NEUTROPHILS # (AUTO) 3.7 10^3/uL (1.5-6.6); NEUTROPHILS % (AUTO) 55.9 %; PLT - PLATELET COUNT 226 10^3/uL (130-450); RED BLOOD COUNT 4.63 10^6/uL (4.70-6.10); RED CELL DISTRIBUTION WIDTH 13.5 % (12.0-15.0); WHITE BLOOD COUNT 6.5 x10^3/uL (4.8-10.8)
[2023-01-28 15:42] LABS: CHOL/HDL RATIO 2.6 (<5.0); CHOLESTEROL 126 mg/dL; HDL CHOLESTEROL 49 mg/dL; LDL CHOLESTEROL,CALCULATED 58 mg/dL; LDL/HDL RATIO 1.2 (<3.6); TRIGLYCERIDES 94 mg/dL (48-352); VLDL CHOLESTEROL 19 mg/dL
== END 2023-01-28 08:37 | disposition home or self-care (01) ==
LOC: LAB.S 08:36
PROVIDERS: ATTEND Internal Medicine
DX: I48.91 Unspecified atrial fibrillation (principal); E78.5 Hyperlipidemia, unspecified
CPT/HCPCS: 36415; 80061; 83721; 85025; 85610

== ENCOUNTER 2023-03-11 09:21 | Outpatient (CLI) | payer MEDICARE | END 2023-03-11 09:22 | disposition home or self-care (01) | LOC: LAB.S 09:21 | PROVIDERS: ATTEND Internal Medicine | DX: I48.91 Unspecified atrial fibrillation (principal) | CPT/HCPCS: 36416; 85610 ==

== ENCOUNTER 2023-05-09 08:20 | Outpatient (CLI) | payer MEDICARE | END 2023-05-09 08:21 | disposition home or self-care (01) | LOC: LAB.S 08:20 | PROVIDERS: ATTEND Internal Medicine | DX: I48.91 Unspecified atrial fibrillation (principal) | CPT/HCPCS: 36416; 85610 ==

== ENCOUNTER 2023-07-03 08:00 | Outpatient (CLI) | payer MEDICARE | END 2023-07-03 08:01 | disposition home or self-care (01) | LOC: LAB.S 08:00 | PROVIDERS: ATTEND Registered Nurse | DX: H10.30 Unspecified acute conjunctivitis, unspecified eye (principal); J34.89 Other specified disorders of nose and nasal sinuses; J02.9 Acute pharyngitis, unspecified | CPT/HCPCS: 87070 ==

== ENCOUNTER 2023-07-03 08:00 | Outpatient (CLI) | payer MEDICARE | END 2023-07-03 23:59 | disposition home or self-care (01) | LOC: LAB.N 08:00 | PROVIDERS: ATTEND Registered Nurse | DX: H10.30 Unspecified acute conjunctivitis, unspecified eye (principal); J34.89 Other specified disorders of nose and nasal sinuses; J02.9 Acute pharyngitis, unspecified | CPT/HCPCS: 87070 ==